=== PATIENT | male | born 1945 | race Caucasian/White ===

== ENCOUNTER 2019-04-21 07:55 | Emergency (ER) | payer MEDICARE ==
[~2019-04-21] VITALS: Ht 170.2 cm; Wt 67.0 kg
[2019-04-21 09:21] LABS: BASOPHILS # (AUTO) 0.1 X10'3 (0-0.2); BASOPHILS % (AUTO) 1.1 % (0-1); EOSINOPHILS # (AUTO) 0.6 X10'3 (0-0.9); EOSINOPHILS % (AUTO) 6.8 % (0-6); HEMATOCRIT 36.1 % (42.0-52.0); HEMOGLOBIN 12.5 g/dl (14.0-17.9); LYMPHOCYTES % (AUTO) 12.7 % (21-51); MEAN CORPUSCULAR HEMOGLOBIN 35.2 PG (27.0-31.0); MEAN CORPUSCULAR HGB CONC 34.6 g/dL (33.0-36.5); MEAN CORPUSCULAR VOLUME 101.8 FL (78-98); MONOCYTES # (AUTO) 0.6 X10'3 (0-0.9); MONOCYTES % (AUTO) 7.8 % (2-12); NEUTROPHILS # (AUTO) 5.9 X10'3 (1.8-7.7); NEUTROPHILS % (AUTO) 71.6 % (42-75); PLATELET COUNT 343 X10'3 (140-440); RED BLOOD COUNT 3.54 X10'6 (4.70-6.10); WHITE BLOOD COUNT 8.2 X10'3 (4.5-11.0)
[2019-04-21 09:35] LABS: ALANINE AMINOTRANSFERASE 19 U/L (12-78); ALBUMIN 3.3 G/DL (3.4-5.0); ALBUMIN/GLOBULIN RATIO 0.9 (1.1-1.5); ALKALINE PHOSPHATASE 99 IU/L (46-116); ANION GAP 9 (8-16); ASPARTATE AMINO TRANSFERASE 27 U/L (10-37); BILIRUBIN,TOTAL 0.4 MG/DL (0.1-1.0); BLOOD UREA NITROGEN 9 MG/DL (7-18); BUN/CREATININE RATIO 11.3 (5.4-32.0); CALCIUM 8.4 MG/DL (8.5-10.1); CHLORIDE 101 MMOL/L (99-107); GLUCOSE 105 MG/DL (70-104); POTASSIUM 4.1 MMOL/L (3.5-5.1); SODIUM 138 MMOL/L (135-145); TOTAL CARBON DIOXIDE 28.4 MMOL/L (24-32); TOTAL PROTEIN 7.1 G/DL (6.4-8.2); eGFR > 90 ML/MIN
[2019-04-21] MEDS ORDERED: PRED10TA PO (09:42)
== END 2019-04-21 09:51 | disposition home or self-care (01) ==
LOC: ER 07:57
DX: R21 Rash and other nonspecific skin eruption (principal); Z79.899 Other long term (current) drug therapy
CPT/HCPCS: 36415; 80053; 85025; 99283

== ENCOUNTER 2019-04-23 09:11 | Emergency (ER) | payer MEDICARE ==
[~2019-04-23] VITALS: Ht 170.2 cm; Wt 66.6 kg
[~2019-04-23 09:11] MED LIST: PRED10TA PO
[2019-04-23 09:13] VITALS: BP 164/65
== END 2019-04-23 10:08 | disposition home or self-care (01) ==
LOC: ER 09:12
DX: R21 Rash and other nonspecific skin eruption (principal); F10.99 Alcohol use, unspecified with unspecified alcohol-induced disorder; Z79.899 Other long term (current) drug therapy; Y90.9 Presence of alcohol in blood, level not specified
CPT/HCPCS: 99284

== ENCOUNTER 2021-12-02 22:44 | Emergency (ER) | payer BC, MEDICAID ==
[~2021-12-02] VITALS: Ht 170.2 cm; Wt 74.0 kg
[~2021-12-02 22:44] MED LIST changes: +ACET325T53 PO; +CYAN100082 PO; +DOCU100C40 PO; +FOLI0.4T6 PO; +MAG-154 PO; +POLY17PO10 PO; -PRED10TA PO; +PYRI-3 PO; +SENN-25 PO
[2021-12-02 22:54] VITALS: BP 170/70
[2021-12-03] MEDS ORDERED: acetaminophen 325mg tablet PO ONE (00:55)
[2021-12-03] MEDS ORDERED: ondansetron 4mg rapidly disintigrating tab PO ONE (00:55)
[2021-12-03] MEDS ORDERED: clindamycin 150mg capsule PO ONE (01:25)
[2021-12-03] MEDS ORDERED: CLIN150C8 PO (01:28)
== END 2021-12-03 01:55 | disposition home or self-care (01) ==
LOC: ER 22:44
DX: L03.116 Cellulitis of left lower limb (principal); Z72.89 Other problems related to lifestyle; Z79.899 Other long term (current) drug therapy; Z79.2 Long term (current) use of antibiotics
CPT/HCPCS: 73630; 99284

== ENCOUNTER 2022-05-01 10:09 | Emergency (ER) | payer BC, MEDICAID ==
[~2022-05-01] VITALS: Ht 170.2 cm; Wt 72.0 kg
[~2022-05-01 10:09] MED LIST changes: +CLIN150C8 PO
[2022-05-01 10:55] VITALS: BP 134/61
[2022-05-01] MEDS ORDERED: HYDROcodone/acetaminophen 5mg/325mg tablet PO ONE (13:05)
== END 2022-05-01 14:41 | disposition home or self-care (01) ==
LOC: ER 10:09
DX: S60.512A Abrasion of left hand, initial encounter (principal); M25.572 Pain in left ankle and joints of left foot; Z79.899 Other long term (current) drug therapy; W18.39XA Other fall on same level, initial encounter; Y93.89 Activity, other specified; Y92.89 Other specified places as the place of occurrence of the external cause; Y99.8 Other external cause status
CPT/HCPCS: 73610; 73630; 99284

== ENCOUNTER → 2022-08-01 | Emergency (ER) | payer BC, MEDICAID ==
[~2022-08-01] VITALS: Ht 172.7 cm; Wt 72.7 kg
[2022-08-01 11:25] VITALS: BP 164/76
[2022-08-01 11:55] LABS: BASOPHILS % (AUTO) 0.8 % (0-1); HEMATOCRIT 40.9 % (42.0-52.0); HEMOGLOBIN 13.8 g/dl (14.0-17.9); LYMPHOCYTES # (AUTO) 1.4 X10'3 (1.1-4.8); LYMPHOCYTES % (AUTO) 29.6 % (21-51); MEAN CORPUSCULAR HEMOGLOBIN 32.5 PG (27.0-31.0); MEAN CORPUSCULAR HGB CONC 33.8 g/dL (33.0-36.5); MEAN CORPUSCULAR VOLUME 96.1 FL (78-98); MONOCYTES # (AUTO) 0.3 X10'3 (0-0.9); NEUTROPHILS # (AUTO) 2.9 X10'3 (1.8-7.7); NEUTROPHILS % (AUTO) 62.6 % (42-75); PLATELET COUNT 371 X10'3 (140-440); RED BLOOD COUNT 4.26 X10'6 (4.70-6.10); RED CELL DISTRIBUTION WIDTH 14.2 % (11.5-14.5); WHITE BLOOD COUNT 4.7 X10'3 (4.5-11.0)
[2022-08-01 12:16] LABS: ALBUMIN 4.4 G/DL (3.4-5.0); ALBUMIN/GLOBULIN RATIO 1.3 (1.1-1.5); ANION GAP 11 (8-16); BILIRUBIN,TOTAL 0.9 MG/DL (0.1-1.0); BLOOD UREA NITROGEN 13 MG/DL (7-18); BUN/CREATININE RATIO 14.1 (5.4-32.0); CALCIUM 8.6 MG/DL (8.5-10.1); CHLORIDE 95 MMOL/L (99-107); CREATININE 0.92 MG/DL (0.60-1.10); GLUCOSE 146 MG/DL (70-104); SODIUM 129 MMOL/L (135-145); TOTAL CARBON DIOXIDE 23.2 MMOL/L (24-32); TOTAL PROTEIN 7.8 G/DL (6.4-8.2); eGFR 79 ML/MIN
[2022-08-01 12:17] LABS: ALANINE AMINOTRANSFERASE 175 U/L (12-78); ALKALINE PHOSPHATASE 108 IU/L (46-116); ASPARTATE AMINO TRANSFERASE 278 U/L (10-37)
[2022-08-01 14:02] LABS: LIPASE 148 U/L (73-393)
== END | disposition home or self-care (01) ==
LOC: ER 10:54
DX: K80.70 Calculus of gallbladder and bile duct without cholecystitis without obstruction (principal)
CPT/HCPCS: 36415; 71045; 74176; 76700; 80053; 83690; 83880; 84484; 85025; 93005; 99285

== ENCOUNTER 2022-12-05 11:58 | Emergency (ER) | payer BC, MEDICAID ==
[~2022-12-05] VITALS: Ht 170.2 cm; Wt 84.1 kg
[~2022-12-05 11:58] MED LIST changes: +CLIN-214 PO; -CLIN150C8 PO
[2022-12-05] MEDS ORDERED: LIDOcaine 1% W/epiNEPHrine 1:100,000 20ml vial SQ ONE (13:40)
[2022-12-05] MEDS ORDERED: bacitracin 15gm ointment TP ONE (13:40)
[2022-12-05] MEDS ORDERED: TETanus/Pertussis (Acell)/Diphther VAC/PF (Tdap-Adult) 0.5ml syringe IMVAC ONE (13:40)
[2022-12-05 15:23] LABS: BASOPHILS # (AUTO) 0.1 X10'3 (0-0.2); BASOPHILS % (AUTO) 0.6 % (0-1); EOSINOPHILS # (AUTO) 0.2 X10'3 (0-0.9); EOSINOPHILS % (AUTO) 1.7 % (0-6); HEMOGLOBIN 14.2 g/dl (14.0-17.9); LYMPHOCYTES # (AUTO) 1.8 X10'3 (1.1-4.8); LYMPHOCYTES % (AUTO) 18.1 % (21-51); MEAN CORPUSCULAR HEMOGLOBIN 32.4 PG (27.0-31.0); MEAN CORPUSCULAR HGB CONC 33.8 g/dL (33.0-36.5); MEAN CORPUSCULAR VOLUME 95.6 FL (78-98); MEAN PLATELET VOLUME 6.8 FL (7.4-10.4); MONOCYTES # (AUTO) 0.6 X10'3 (0-0.9); MONOCYTES % (AUTO) 6.3 % (2-12); NEUTROPHILS # (AUTO) 7.2 X10'3 (1.8-7.7); NEUTROPHILS % (AUTO) 73.3 % (42-75); PLATELET COUNT 351 X10'3 (140-440); RED BLOOD COUNT 4.39 X10'6 (4.70-6.10); RED CELL DISTRIBUTION WIDTH 13.4 % (11.5-14.5); WHITE BLOOD COUNT 9.9 X10'3 (4.5-11.0)
[2022-12-05 15:38] LABS: ALANINE AMINOTRANSFERASE 13 U/L (12-78); ALBUMIN 4.1 G/DL (3.4-5.0); ALBUMIN/GLOBULIN RATIO 1.2 (1.1-1.5); ALKALINE PHOSPHATASE 97 IU/L (46-116); ANION GAP 14 (8-16); ASPARTATE AMINO TRANSFERASE 14 U/L (10-37); BILIRUBIN,TOTAL 0.5 MG/DL (0.1-1.0); BLOOD UREA NITROGEN 6 MG/DL (7-18); BUN/CREATININE RATIO 6.7 (10.0-20.0); CALCIUM 8.7 MG/DL (8.5-10.1); CHLORIDE 101 MMOL/L (99-107); CREATININE 0.89 MG/DL (0.60-1.10); GLUCOSE 108 MG/DL (70-104); POTASSIUM 3.9 MMOL/L (3.5-5.1); SODIUM 141 MMOL/L (135-145); TOTAL CARBON DIOXIDE 26.4 MMOL/L (24-32); TOTAL PROTEIN 7.4 G/DL (6.4-8.2); eGFR 82 ML/MIN
[2022-12-05 15:44] LABS: CLARITY,URINE CLEAR (Clear); COLOR,URINE YELLOW (Yellow); GLUCOSE, URINE NEGATIVE (Neg); KETONES,URINE NEGATIVE (Neg); LEUKOCYTE ESTERASE ,URINE NEGATIVE (Neg); NITRITES, URINE NEGATIVE (Neg); OCCULT BLOOD,URINE TRACE-INTACT (Neg); PROTEIN,URINE NEGATIVE (Neg); UROBILINOGEN,URINE 0.2 E.U/dL (0.2-1.0)
[2022-12-05 15:45] LABS: ETHANOL < 0.010 GM/DL (0.0-0.010)
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
[2022-12-05 15:46] LABS: UA COLLECTION TYPE CLN CATCH MIDSTREAM
[2022-12-05 16:01] LABS: URINE AMPHETAMINE SCREEN NEGATIVE (Neg); URINE BARBITUATE SCREEN NEGATIVE (Neg); URINE BENZODIAZEPINES SCREEN NEGATIVE (Neg); URINE CANNABINOID SCREEN NEGATIVE (Neg); URINE COCAINE SCREEN NEGATIVE (Neg); URINE METHADONE SCREEN NEGATIVE (Neg); URINE OPIATE SCREEN NEGATIVE (Neg); URINE PHENCYCLIDINE SCREEN NEGATIVE (Neg)
[2022-12-05 16:26] LABS: MUCUS STRANDS FEW /LPF (Neg); SQUAMOUS EPITHELIAL CELL,UR FEW /LPF (FEW)
[2022-12-05 16:27] LABS: BACTERIA,URINE FEW /HPF (Neg); RBC,URINE 0-2 /HPF (0-2); WBC,URINE 0-4 /HPF (0-4)
--- NOTE | 2022-12-05 18:45 | NUR ---
pt moved to overflow from main ER
[2022-12-05] MEDS ORDERED: FURO-150 PO (18:56)
[2022-12-05] MEDS ORDERED: OXYB10TA30 PO (18:56)
[2022-12-05] MEDS ORDERED: AMLO10TA2 PO (18:56)
[2022-12-05] MEDS ORDERED: AMLO2.5T12 PO (18:56)
[2022-12-05] MEDS ORDERED: LISI20TA28 PO (18:56)
--- NOTE | 2022-12-05 19:25 | NUR ---
Patient reclining in bed awake. No distress observed. Continue to monitor.
--- NOTE | 2022-12-05 21:19 | NUR ---
Patient sleeping on his left side. No distress observed. Continue to monitor.
--- NOTE | 2022-12-05 21:33 | NUR ---
Patient sleeping. No distress observed. Continue to monitor.
--- NOTE | 2022-12-06 00:11 | NUR ---
Patient sleeping. No distress observed. Continue to monitor.
--- NOTE | 2022-12-06 01:12 | NUR ---
Patient asked for another blanket. Tech gave patient a warm blanket. No distress observed. Continue to monitor.
--- NOTE | 2022-12-06 02:16 | NUR ---
Patient appears to be sleeping. No distress observed. Continue to monitor.
--- NOTE | 2022-12-06 03:48 | NUR ---
Patient continues to sleep. No distress observed. Continue to monitor.
--- NOTE | 2022-12-06 05:31 | NUR ---
Patient appears to be sleeping. No distress observed. Continue to monitor.
--- NOTE | 2022-12-06 06:30 | NUR ---
Patient is sleeping in bed at this time. No acute distress, bed locked/ lowest position, q15 rounds. Will CTM.
[2022-12-06] MEDS ORDERED: lisinopril 20mg tablet PO SCH (08:00)
[2022-12-06] MEDS ORDERED: furosemide 20MG tablet PO SCH (08:00)
[2022-12-06] MEDS ORDERED: amLODIPine 5mg tablet PO SCH (08:00)
[2022-12-06] MEDS ORDERED: oxybutynin 5mg tablet PO SCH (08:00)
--- NOTE | 2022-12-06 08:30 | NUR ---
Patient is sleeping at this time in bed at this time. Ate breakfast & has used the BR. Tolerated PO medications well. No acute distress, bed locked/ lowest position, q15 rounds. Will CTM.
--- NOTE | 2022-12-06 10:30 | NUR ---
Patient is resting up in bed at this time. No acute distress, bed locked/ lowest position, q15 rounds. Will CTM.
--- NOTE | 2022-12-06 12:30 | NUR ---
Patient is sleeping in bed at this time. No acute distress, bed locked/ lowest position, q15 rounds. Will CTM.
--- NOTE | 2022-12-06 12:30 | NUR ---
Patient has been evaled by the ED clinicain & has been noted the pt has mild cognitive decline. Also, the patients' sister will be here this afternoon to parts picker the patient.
[2022-12-06 17:07] VITALS: BP 124/68
== END 2022-12-06 17:33 | disposition home or self-care (01) ==
LOC: ER 11:59
DX: S61.512A Laceration without foreign body of left wrist, initial encounter (principal); Z20.822 Contact with and (suspected) exposure to COVID-19; F32.A Depression, unspecified; W19.XXXA Unspecified fall, initial encounter; Y93.89 Activity, other specified; Y92.89 Other specified places as the place of occurrence of the external cause; Y99.8 Other external cause status
CPT/HCPCS: 12001; 36415; 80053; 80305; 80320; 81001; 84443; 85025; 87811; 90471; 90715; 99284

== ENCOUNTER 2023-07-17 16:14 | Emergency (ER) | payer BC, MEDICAID ==
[~2023-07-17] VITALS: Ht 162.6 cm; Wt 59.1 kg
[~2023-07-17 16:14] MED LIST changes: -ACET325T53 PO; +AMLO10TA2 PO; -CLIN-214 PO; -CYAN100082 PO; -DOCU100C40 PO; -FOLI0.4T6 PO; +FURO-150 PO; +LISI20TA28 PO; -MAG-154 PO; +OXYB10TA30 PO; -POLY17PO10 PO; -PYRI-3 PO; -SENN-25 PO
[2023-07-17] MEDS ORDERED: bacitracin 15gm ointment TP ONE (17:40)
[2023-07-17] MEDS ORDERED: LIDOcaine 1% W/epiNEPHrine 1:200,000 10ml vial IJ ONE (17:40)
[2023-07-17] MEDS ORDERED: LIDOcaine 1% W/epiNEPHrine 1:100,000 20ml vial SQ ONE (17:50)
[2023-07-17] MEDS ORDERED: LIDOCAINE 1%/EPI 1:100,000 inj. 10 ML multi-dose vial SQ ONE (18:00)
[2023-07-17 18:12] LABS: BASOPHILS # (AUTO) 0.1 X10'3 (0-0.2); BASOPHILS % (AUTO) 0.7 % (0-1); EOSINOPHILS # (AUTO) 0.1 X10'3 (0-0.9); EOSINOPHILS % (AUTO) 1.8 % (0-6); HEMATOCRIT 43.2 % (42.0-52.0); HEMOGLOBIN 14.8 g/dl (14.0-17.9); LYMPHOCYTES # (AUTO) 1.4 X10'3 (1.1-4.8); LYMPHOCYTES % (AUTO) 19.5 % (21-51); MEAN CORPUSCULAR HEMOGLOBIN 32.5 PG (27.0-31.0); MEAN CORPUSCULAR HGB CONC 34.3 g/dL (33.0-36.5); MEAN CORPUSCULAR VOLUME 94.8 FL (78-98); MEAN PLATELET VOLUME 6.9 FL (7.4-10.4); MONOCYTES # (AUTO) 0.5 X10'3 (0-0.9); MONOCYTES % (AUTO) 6.8 % (2-12); NEUTROPHILS # (AUTO) 5.3 X10'3 (1.8-7.7); NEUTROPHILS % (AUTO) 71.2 % (42-75); PLATELET COUNT 317 X10'3 (140-440); RED BLOOD COUNT 4.56 X10'6 (4.70-6.10); RED CELL DISTRIBUTION WIDTH 12.8 % (11.5-14.5); WHITE BLOOD COUNT 7.4 X10'3 (4.5-11.0)
[2023-07-17 18:28] LABS: ALBUMIN 3.9 G/DL (3.4-5.0); ANION GAP 6 (8-16); BLOOD UREA NITROGEN 7 MG/DL (7-18); BUN/CREATININE RATIO 7.1 (10.0-20.0); CALCIUM 8.6 MG/DL (8.5-10.1); CHLORIDE 99 MMOL/L (99-107); CREATININE 0.99 MG/DL (0.60-1.10); ETHANOL < 10 MG/DL (<10); GLUCOSE 102 MG/DL (70-104); POTASSIUM 3.9 MMOL/L (3.5-5.1); SALICYLATE 0.4 MG/DL (4.0-20.0); SODIUM 132 MMOL/L (135-145); THYROID STIMULATING HORMONE 1.16 ulU/ml (0.34-4.50); TOTAL CARBON DIOXIDE 26.6 MMOL/L (24-32); eCRCL 50 ML/MIN; eGFR 73 ML/MIN
[2023-07-17 18:42] LABS: ACETAMINOPHEN < 2.0 UG/ML (10-30)
[2023-07-17 19:33] LABS: BILIRUBIN,URINE NEGATIVE (Neg); CLARITY,URINE CLEAR (Clear); COLOR,URINE YELLOW (Yellow); GLUCOSE, URINE NEGATIVE (Neg); KETONES,URINE NEGATIVE (Neg); LEUKOCYTE ESTERASE ,URINE SMALL (Neg); NITRITES, URINE NEGATIVE (Neg); OCCULT BLOOD,URINE NEGATIVE (Neg); PH,URINE 6.5 (4.8-8.0); PROTEIN,URINE NEGATIVE (Neg)
[2023-07-17 19:40] LABS: MUCUS STRANDS FEW /LPF (Neg); SQUAMOUS EPITHELIAL CELL,UR FEW /LPF (FEW); UA COLLECTION TYPE CLN CATCH MIDSTREAM
[2023-07-17 19:41] LABS: BACTERIA,URINE 1+ /HPF (Neg); RBC,URINE 0-2 /HPF (0-2); WBC CLUMPS,URINE FEW /HPF (NEGATIVE)
[2023-07-17] MEDS ORDERED: OXYB10TA30 PO (19:49)
[2023-07-17] MEDS ORDERED: AMLO10TA13 PO (19:49)
[2023-07-17] MEDS ORDERED: LISI20TA28 PO (19:49)
[2023-07-17] MEDS ORDERED: acetaminophen 325mg tablet PO PRN (20:05)
[2023-07-17 20:08] LABS: URINE AMPHETAMINE SCREEN NEGATIVE (Neg); URINE BARBITUATE SCREEN NEGATIVE (Neg); URINE BENZODIAZEPINES SCREEN NEGATIVE (Neg); URINE CANNABINOID SCREEN NEGATIVE (Neg); URINE COCAINE SCREEN NEGATIVE (Neg); URINE METHADONE SCREEN NEGATIVE (Neg); URINE OPIATE SCREEN NEGATIVE (Neg); URINE PHENCYCLIDINE SCREEN NEGATIVE (Neg)
[2023-07-18] MEDS ORDERED: potassium Cl 20 mEq SR tablet PO ONE (07:20)
[2023-07-18] MEDS: lisinopril 20mg tablet PO SCH (07:33)
[2023-07-18] MEDS: amLODIPine 5mg tablet PO SCH (07:33)
[2023-07-18] MEDS: oxybutynin 5mg tablet PO SCH ×2 (07:33→20:14)
[2023-07-19 06:05] VITALS: BP_DIAS 71; RESP 18; O2SAT 97
[2023-07-19] MEDS: amLODIPine 5mg tablet PO SCH (08:36)
[2023-07-19 08:37] VITALS: BP_SYST 134; PULSE 70
[2023-07-19] MEDS: oxybutynin 5mg tablet PO SCH (08:37)
[2023-07-19] MEDS: lisinopril 20mg tablet PO SCH (08:37)
[2023-07-19 18:15] VITALS: TEMP 96.8
== END 2023-07-19 18:00 | disposition still patient (30) ==
LOC: ER 16:15
DX: S61.512A Laceration without foreign body of left wrist, initial encounter (principal); Z20.822 Contact with and (suspected) exposure to COVID-19; R45.851 Suicidal ideations; Z79.899 Other long term (current) drug therapy; X58.XXXA Exposure to other specified factors, initial encounter; Y93.89 Activity, other specified; Y92.89 Other specified places as the place of occurrence of the external cause; Y99.8 Other external cause status
CPT/HCPCS: 12002; 36415; 80048; 80305; 80320; 80329; 81001; 84443; 85025; 87088; 87811; 99285; A6222; A6258; A6449

== ENCOUNTER 2023-10-08 09:24 | Inpatient (IN) | payer BC, MEDICAID ==
[~2023-10-08] VITALS: Ht 170.2 cm; Wt 58.0 kg
[~2023-10-08 09:24] MED LIST changes: +AMLO10TA13 PO; -AMLO10TA2 PO; -FURO-150 PO
[2023-10-08 11:00] LABS: BILIRUBIN,URINE NEGATIVE (Neg); CLARITY,URINE CLEAR (Clear); COLOR,URINE YELLOW (Yellow); GLUCOSE, URINE NEGATIVE (Neg); KETONES,URINE 15 mg/dl (Neg); LEUKOCYTE ESTERASE ,URINE NEGATIVE (Neg); NITRITES, URINE NEGATIVE (Neg); OCCULT BLOOD,URINE NEGATIVE (Neg); PROTEIN,URINE NEGATIVE (Neg); UROBILINOGEN,URINE 0.2 E.U/dL (0.2-1.0)
[2023-10-08 11:08] LABS: UA COLLECTION TYPE URINAL
[2023-10-08 11:15] LABS: BASOPHILS % (AUTO) 0.3 % (0-1); EOSINOPHILS % (AUTO) 0.2 % (0-6); HEMATOCRIT 39.5 % (42.0-52.0); HEMOGLOBIN 13.2 g/dl (14.0-17.9); LYMPHOCYTES # (AUTO) 0.8 X10'3 (1.1-4.8); LYMPHOCYTES % (AUTO) 5.3 % (21-51); MEAN CORPUSCULAR HEMOGLOBIN 31.5 PG (27.0-31.0); MEAN CORPUSCULAR HGB CONC 33.4 g/dL (33.0-36.5); MEAN CORPUSCULAR VOLUME 94.3 FL (78-98); MEAN PLATELET VOLUME 7.1 FL (7.4-10.4); MONOCYTES # (AUTO) 0.9 X10'3 (0-0.9); MONOCYTES % (AUTO) 5.7 % (2-12); NEUTROPHILS # (AUTO) 13.3 X10'3 (1.8-7.7); NEUTROPHILS % (AUTO) 88.5 % (42-75); PLATELET COUNT 222 X10'3 (140-440); RED BLOOD COUNT 4.19 X10'6 (4.70-6.10); RED CELL DISTRIBUTION WIDTH 14.3 % (11.5-14.5); WHITE BLOOD COUNT 15.1 X10'3 (4.5-11.0)
[2023-10-08 11:27] LABS: ALBUMIN 3.6 G/DL (3.4-5.0); ANION GAP 11 (8-16); BLOOD UREA NITROGEN 22 MG/DL (7-18); BUN/CREATININE RATIO 18.6 (10.0-20.0); CALCIUM 8.4 MG/DL (8.5-10.1); CHLORIDE 104 MMOL/L (99-107); CREATININE 1.18 MG/DL (0.60-1.10); GLUCOSE 74 MG/DL (70-104); POTASSIUM 4.4 MMOL/L (3.5-5.1); SODIUM 139 MMOL/L (135-145); TOTAL CARBON DIOXIDE 24.5 MMOL/L (24-32); eCRCL 41 ML/MIN; eGFR 59 ML/MIN
[2023-10-08] MEDS: TETanus/Pertussis (Acell)/Diphther VAC/PF (Tdap-Adult) 0.5ml syringe IMVAC ONE (12:44)
[2023-10-09] MEDS: TETanus/Pertussis (Acell)/Diphther VAC/PF (Tdap-Adult) 0.5ml syringe IMVAC ONE (16:35)
[2023-10-09] MEDS ORDERED: bisacodyl 10mg suppository rectal RC PRN (16:40)
[2023-10-09] MEDS ORDERED: acetaminophen 650mg rectal suppository RC PRN (16:40)
[2023-10-09] MEDS ORDERED: HYDROcodone/acetaminophen 5mg/325mg tablet PO PRN (16:40)
[2023-10-09] MEDS ORDERED: mag hydrox/Alum hydrox/simeth 30ml oral suspension PO PRN (16:40)
[2023-10-09] MEDS ORDERED: morphine 2 MG/ML inj. syringe IV PRN ×2 (16:40)
[2023-10-09] MEDS ORDERED: diphenhydrAMINE 50 mg/ml inj IV PRN (16:40)
[2023-10-09] MEDS ORDERED: magnesium hydroxide 30ml (MOM) UD suspension PO PRN (16:40)
[2023-10-09] MEDS ORDERED: diphenhydrAMINE 25mg capsule PO PRN (16:40)
[2023-10-09] MEDS ORDERED: acetaminophen 325mg tablet PO PRN ×2 (16:40)
[2023-10-09] MEDS ORDERED: ondansetron 4mg rapidly disintigrating tab PO PRN (16:40)
[2023-10-09] MEDS: dextrose 5%-1/2 normal saline 1,000 ML IV SCH (16:40)
[2023-10-09] MEDS ORDERED: ondansetron/PF 4mg/2ml inj IV PRN (16:40)
[2023-10-09 17:34] LABS: APTT 28 SECONDS (22-32); INR 1.1 INR; PROTHROMBIN TIME 11.4 SECONDS (9.0-12.0)
[2023-10-09 17:44] LABS: PHOSPHORUS 3.3 MG/DL (2.3-4.5); PRO BRAIN NATRIURETIC PEPTIDE 153 PG/ML (0-450)
[2023-10-09 18:01] LABS: HEMOGLOBIN A1C 5.9 % (4.5-6.2)
[2023-10-09 18:36] LABS: THYROID STIMULATING HORMONE 1.24 ulU/ml (0.34-4.50)
[2023-10-09] MEDS: heparin, porcine 5000 units/ml vial SQ SCH (20:00)
[2023-10-09] MEDS: docusate sod 100mg capsule PO SCH (20:00)
[2023-10-09 21:50] VITALS: BP 140/82; PULSE 77; RESP 15; TEMP 98.1; O2SAT 97
[2023-10-10] VITALS (8 sets, daily range): BP systolic 128–159; BP diastolic 52–72; PULSE 68–78; RESP 15–20; TEMP 97–98.1; O2SAT 97–98
[2023-10-10] MEDS: temazepam 15mg capsule PO PRN (01:39)
[2023-10-10 06:37] LABS: BASOPHILS % (AUTO) 0.4 % (0-1); EOSINOPHILS # (AUTO) 0.6 X10'3 (0-0.9); EOSINOPHILS % (AUTO) 5.5 % (0-6); HEMATOCRIT 36.1 % (42.0-52.0); HEMOGLOBIN 12.1 g/dl (14.0-17.9); LYMPHOCYTES % (AUTO) 9.2 % (21-51); MEAN CORPUSCULAR HEMOGLOBIN 31.6 PG (27.0-31.0); MEAN CORPUSCULAR HGB CONC 33.6 g/dL (33.0-36.5); MEAN CORPUSCULAR VOLUME 94.2 FL (78-98); MEAN PLATELET VOLUME 7.4 FL (7.4-10.4); MONOCYTES # (AUTO) 0.8 X10'3 (0-0.9); MONOCYTES % (AUTO) 7.4 % (2-12); NEUTROPHILS # (AUTO) 8.6 X10'3 (1.8-7.7); NEUTROPHILS % (AUTO) 77.5 % (42-75); PLATELET COUNT 216 X10'3 (140-440); RED BLOOD COUNT 3.83 X10'6 (4.70-6.10); RED CELL DISTRIBUTION WIDTH 14.2 % (11.5-14.5)
[2023-10-10 06:50] LABS: ALANINE AMINOTRANSFERASE 16 U/L (12-78); ALBUMIN 2.9 G/DL (3.4-5.0); ALBUMIN/GLOBULIN RATIO 0.8 (1.1-1.5); ALKALINE PHOSPHATASE 96 IU/L (46-116); ANION GAP 9 (8-16); ASPARTATE AMINO TRANSFERASE 21 U/L (10-37); BILIRUBIN,TOTAL 0.9 MG/DL (0.1-1.0); BLOOD UREA NITROGEN 28 MG/DL (7-18); BUN/CREATININE RATIO 21.4 (10.0-20.0); CALCIUM 8.3 MG/DL (8.5-10.1); CHLORIDE 106 MMOL/L (99-107); CHOL/HDL RATIO 3.5 (0.00-4.99); CHOLESTEROL 206 MG/DL (0-200); CREATININE 1.31 MG/DL (0.60-1.10); GLUCOSE 92 MG/DL (70-104); HDL CHOLESTEROL 59 MG/DL (35-60); LDL CHOLESTEROL 139 MG/DL (50-100); SODIUM 138 MMOL/L (135-145); TOTAL CARBON DIOXIDE 23.5 MMOL/L (24-32); TOTAL PROTEIN 6.5 G/DL (6.4-8.2); TRIGLYCERIDES 48 MG/DL (20-135); eCRCL 37 ML/MIN; eGFR 53 ML/MIN
[2023-10-10] MEDS: pantoprazole 40mg Tablet.DR PO SCH (09:16)
[2023-10-10] MEDS: normal saline 1000ml 1,000 ML IV SCH (09:49)
[2023-10-10] MEDS: CefTRIAXone/D5W-Rocephin 1gm 50 ML IV SCH (09:55)
[2023-10-10 18:36] LABS: % IRON SATURATION 16 % (11-46); IRON 41 UG/DL (53-167); TOTAL IRON BINDING CAPACITY 256 UG/DL (259-388)
[2023-10-11 06:00] VITALS: BP 157/75; PULSE 66; RESP 17; TEMP 97.1; O2SAT 98
[2023-10-11 06:35] LABS: BASOPHILS # (AUTO) 0.1 X10'3 (0-0.2); EOSINOPHILS # (AUTO) 0.8 X10'3 (0-0.9); EOSINOPHILS % (AUTO) 10.7 % (0-6); HEMATOCRIT 35.2 % (42.0-52.0); LYMPHOCYTES # (AUTO) 1.6 X10'3 (1.1-4.8); LYMPHOCYTES % (AUTO) 22.2 % (21-51); MEAN CORPUSCULAR HGB CONC 34.1 g/dL (33.0-36.5); MEAN CORPUSCULAR VOLUME 93.8 FL (78-98); MONOCYTES # (AUTO) 0.7 X10'3 (0-0.9); NEUTROPHILS # (AUTO) 4.1 X10'3 (1.8-7.7); NEUTROPHILS % (AUTO) 56.1 % (42-75); PLATELET COUNT 206 X10'3 (140-440); RED BLOOD COUNT 3.75 X10'6 (4.70-6.10); RED CELL DISTRIBUTION WIDTH 14.5 % (11.5-14.5); WHITE BLOOD COUNT 7.4 X10'3 (4.5-11.0)
[2023-10-11 06:55] LABS: ALANINE AMINOTRANSFERASE 16 U/L (12-78); ALBUMIN 2.7 G/DL (3.4-5.0); ALBUMIN/GLOBULIN RATIO 0.8 (1.1-1.5); ALKALINE PHOSPHATASE 103 IU/L (46-116); ANION GAP 4 (8-16); ASPARTATE AMINO TRANSFERASE 16 U/L (10-37); BILIRUBIN,TOTAL 0.5 MG/DL (0.1-1.0); BLOOD UREA NITROGEN 21 MG/DL (7-18); CALCIUM 8.1 MG/DL (8.5-10.1); CHLORIDE 109 MMOL/L (99-107); CREATININE 1.05 MG/DL (0.60-1.10); GLUCOSE 103 MG/DL (70-104); POTASSIUM 4.4 MMOL/L (3.5-5.1); SODIUM 139 MMOL/L (135-145); TOTAL PROTEIN 6.2 G/DL (6.4-8.2); eCRCL 46 ML/MIN; eGFR 68 ML/MIN
[2023-10-11 08:00] VITALS: RESP 17; O2SAT 98
[2023-10-11] MEDS: lisinopril 20mg tablet PO SCH (09:32)
[2023-10-11 10:00] VITALS: BP 123/65; PULSE 61; RESP 16; TEMP 98.4; O2SAT 97
[2023-10-11 18:00] VITALS: BP 149/54; PULSE 68; RESP 18; TEMP 98.1; O2SAT 98
[2023-10-11 20:00] VITALS: RESP 18; O2SAT 98
[2023-10-11 22:00] VITALS: BP 126/57; PULSE 61; RESP 16; TEMP 97.9; O2SAT 97
[2023-10-12 06:00] VITALS: BP 125/65; PULSE 77; RESP 17; TEMP 97.7; O2SAT 100
[2023-10-12 08:00] VITALS: RESP 17; O2SAT 100
[2023-10-12 08:27] LABS: BASOPHILS # (AUTO) 0.1 X10'3 (0-0.2); BASOPHILS % (AUTO) 0.8 % (0-1); EOSINOPHILS # (AUTO) 0.6 X10'3 (0-0.9); EOSINOPHILS % (AUTO) 8.3 % (0-6); HEMATOCRIT 37.9 % (42.0-52.0); HEMOGLOBIN 12.9 g/dl (14.0-17.9); LYMPHOCYTES # (AUTO) 1.7 X10'3 (1.1-4.8); LYMPHOCYTES % (AUTO) 23.6 % (21-51); MEAN CORPUSCULAR HEMOGLOBIN 32.1 PG (27.0-31.0); MEAN CORPUSCULAR VOLUME 94.2 FL (78-98); MEAN PLATELET VOLUME 7.5 FL (7.4-10.4); MONOCYTES # (AUTO) 0.9 X10'3 (0-0.9); NEUTROPHILS % (AUTO) 55.3 % (42-75); PLATELET COUNT 230 X10'3 (140-440); RED BLOOD COUNT 4.02 X10'6 (4.70-6.10); RED CELL DISTRIBUTION WIDTH 14.3 % (11.5-14.5); WHITE BLOOD COUNT 7.3 X10'3 (4.5-11.0)
[2023-10-12 08:45] LABS: ALANINE AMINOTRANSFERASE 13 U/L (12-78); ALBUMIN/GLOBULIN RATIO 0.8 (1.1-1.5); ALKALINE PHOSPHATASE 95 IU/L (46-116); ANION GAP 7 (8-16); ASPARTATE AMINO TRANSFERASE 14 U/L (10-37); BILIRUBIN,TOTAL 0.5 MG/DL (0.1-1.0); BLOOD UREA NITROGEN 16 MG/DL (7-18); BUN/CREATININE RATIO 16.7 (10.0-20.0); CALCIUM 8.3 MG/DL (8.5-10.1); CHLORIDE 105 MMOL/L (99-107); CREATININE 0.96 MG/DL (0.60-1.10); GLUCOSE 104 MG/DL (70-104); SODIUM 139 MMOL/L (135-145); TOTAL CARBON DIOXIDE 26.6 MMOL/L (24-32); TOTAL PROTEIN 6.7 G/DL (6.4-8.2); eCRCL 50 ML/MIN; eGFR 75 ML/MIN
[2023-10-12 10:00] VITALS: BP 131/63; PULSE 70; RESP 16; TEMP 97.7; O2SAT 97
[2023-10-12 18:00] VITALS: BP 109/73; PULSE 61; RESP 16; TEMP 98; O2SAT 96
[2023-10-12 20:00] VITALS: RESP 16; O2SAT 96
[2023-10-12 22:00] VITALS: BP 146/73; PULSE 58; RESP 16; TEMP 98.1; O2SAT 98
[2023-10-13 06:00] VITALS: BP 159/75; PULSE 78; RESP 20; TEMP 98.6; O2SAT 98
[2023-10-13 07:04] LABS: BASOPHILS # (AUTO) 0.1 X10'3 (0-0.2); EOSINOPHILS # (AUTO) 0.7 X10'3 (0-0.9); EOSINOPHILS % (AUTO) 8.4 % (0-6); HEMATOCRIT 38.5 % (42.0-52.0); HEMOGLOBIN 12.9 g/dl (14.0-17.9); LYMPHOCYTES # (AUTO) 1.9 X10'3 (1.1-4.8); LYMPHOCYTES % (AUTO) 23.1 % (21-51); MEAN CORPUSCULAR HEMOGLOBIN 31.8 PG (27.0-31.0); MEAN CORPUSCULAR HGB CONC 33.6 g/dL (33.0-36.5); MEAN CORPUSCULAR VOLUME 94.4 FL (78-98); MEAN PLATELET VOLUME 7.5 FL (7.4-10.4); MONOCYTES # (AUTO) 0.8 X10'3 (0-0.9); MONOCYTES % (AUTO) 9.7 % (2-12); NEUTROPHILS # (AUTO) 4.7 X10'3 (1.8-7.7); NEUTROPHILS % (AUTO) 57.8 % (42-75); PLATELET COUNT 240 X10'3 (140-440); RED BLOOD COUNT 4.07 X10'6 (4.70-6.10); RED CELL DISTRIBUTION WIDTH 14.2 % (11.5-14.5); WHITE BLOOD COUNT 8.1 X10'3 (4.5-11.0)
[2023-10-13 07:36] LABS: ALANINE AMINOTRANSFERASE 25 U/L (12-78); ALBUMIN/GLOBULIN RATIO 0.8 (1.1-1.5); ALKALINE PHOSPHATASE 97 IU/L (46-116); ANION GAP 5 (8-16); ASPARTATE AMINO TRANSFERASE 26 U/L (10-37); BILIRUBIN,TOTAL 0.5 MG/DL (0.1-1.0); BLOOD UREA NITROGEN 21 MG/DL (7-18); BUN/CREATININE RATIO 18.3 (10.0-20.0); CALCIUM 8.9 MG/DL (8.5-10.1); CHLORIDE 103 MMOL/L (99-107); CREATININE 1.15 MG/DL (0.60-1.10); GLUCOSE 97 MG/DL (70-104); POTASSIUM 4.3 MMOL/L (3.5-5.1); SODIUM 137 MMOL/L (135-145); TOTAL CARBON DIOXIDE 29.1 MMOL/L (24-32); TOTAL PROTEIN 6.8 G/DL (6.4-8.2); eCRCL 42 ML/MIN; eGFR 61 ML/MIN
[2023-10-13] MEDS: atorvastatin 20mg tablet PO SCH (07:38)
[2023-10-13] MEDS: ferrous sulfate 325mg tablet PO SCH (07:39)
[2023-10-13 08:00] VITALS: RESP 18; O2SAT 98
[2023-10-13 10:00] VITALS: BP 114/49; PULSE 66; RESP 15; TEMP 98.2; O2SAT 97
== END 2023-10-13 11:50 | disposition home or self-care (01) | DRG 640 ==
LOC: ER 09:25 → ED HOLD 10-09 17:06 → ORTHO 4S 10-09 21:50
PROVIDERS: ADMIT Family Medicine; ATTEND Internal Medicine
DX: E86.0 Dehydration (principal); N17.0 Acute kidney failure with tubular necrosis; F03.B18 Unspecified dementia, moderate, with other behavioral disturbance; G82.22 Paraplegia, incomplete; D64.9 Anemia, unspecified; Z79.899 Other long term (current) drug therapy; S50.02XA Contusion of left elbow, initial encounter; R26.9 Unspecified abnormalities of gait and mobility; I12.9 Hypertensive chronic kidney disease with stage 1 through stage 4 chronic kidney disease, or unspecified chronic kidney disease; N18.9 Chronic kidney disease, unspecified; D72.829 Elevated white blood cell count, unspecified; W18.39XA Other fall on same level, initial encounter; Y93.89 Activity, other specified; Y92.89 Other specified places as the place of occurrence of the external cause; Y99.8 Other external cause status; Z86.73 Personal history of transient ischemic attack (TIA), and cerebral infarction without residual deficits
CPT/HCPCS: 36415; 70450; 71045; 73080; 80048; 80053; 80061; 81003; 82948; 83036; 83540; 83550; 83605; 83735; 83880; 84100; 84443; 84484; 85025; 85610; 85730; 87040; 87081; 90715; 93306; 97116; 97161; 97530; 97535; 99285; A6212; A6213; A6223; A6250; A6258; A6446; A6449; A6590; G0378; J0696; J1644; J7030